=== PATIENT | female | born 1995 | race African-American/Black ===

== ENCOUNTER 2022-03-07 13:56 | Emergency (ER) | payer SELFPAY ==
--- NOTE | 2022-03-07 20:24 | ER ---
Nurse's Notes [facility] Name: Nga Patrick Age: 26 yrs Sex: Female : 1995 Arrival Date: 03/07/2022 Time: 14:26 Bed Waiting Private MD: Diagnosis: Presentation: 03/07 15:11 Chief complaint: Patient states: she has been having abdominal pain for approx 4 ap3 months, however it has gotten worse over the last few days, Patient reports being woken up in the early hours with abdominal pain, nausea and vomiting. Patient reports the vomit looked like it was mixed with blood. Coronavirus screen: At this time, the client does not indicate any symptoms associated with coronavirus-19. Ebola Screen: No symptoms or risks identified at this time. Initial Sepsis Screen: Does the patient meet any 2 criteria? No. Patient's initial sepsis screen is negative. Does the patient have a suspected source of infection? No. Patient's initial sepsis screen is negative. Risk Assessment: Do you want to hurt yourself or someone else? Patient reports no desire to harm self or others. Onset of symptoms was October 2021. 15:11 Method Of Arrival: EMS: [facility] ap3 15:11 Acuity: DEDRA 3 ap3 Triage Assessment: 15:17 General: Appears in no apparent distress. Behavior is calm, cooperative. Pain: ap3 Complains of pain in abdomen Pain began gradually, Also complains of nausea. Neuro: Level of Consciousness is awake, alert, obeys commands, Oriented to person, place, time, situation, Speech is normal. Cardiovascular: Patient's skin is warm and dry. Respiratory: Airway is patent Respiratory effort is even, unlabored. GI: Reports lower abdominal pain, upper abdominal pain, nausea, vomiting. 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 Flu vaccine is up to date. - Social history:: Smoking status: Patient denies any tobacco usage or history of. Screenin:17 Abuse screen: Denies threats or abuse. Nutritional screening: Has had N/V for 3 or more ap3 days. Tuberculosis screening: No symptoms or risk factors identified. Assessment: 15:18 GI: Abd is soft Abdomen is tender to palpation. ap3 Vital Signs: 15:11 BP 106 / 71; Pulse 88; Temp 97.7; Pulse Ox 100% ; Weight 68.04 kg; Height 5 ft. 3 in. ap3 (160.02 cm); 15:11 Body Mass Index 26.57 (68.04 kg, 160.02 cm) ap3 ED Course: 14:26 Patient arrived in ED. ds1 15:11 Marcial Pepper NP is PHCP. pm1 15:11 Delbert Newell MD is Attending Physician. pm1 15:14 Triage completed. ap3 15:17 Arm band placed on right wrist. ap3 20:23 Patient's name was called from ER lobby. No response. Unable to locate patient. Will bb disposition as left without being seen by a provider. Administered Medications: No medications were administered Outcome: 20:23 Patient left the ED. bb Signatures: Marjorie Ledesma ds1 Laurita Martins, RN RN bb Marcial Pepper NP [facility] [employer] pm1 Mary Mcguire RN RN ap3 Danie Garcia al4 Corrections: (The following items were deleted from the chart) 19:49 19:42 Danie Garcia is Primary Nurse. al4 al4
--- NOTE | 2022-03-07 20:24 | EDPHYS ---
Physician Documentation [facility] Name: Nga Patrick Age: 26 yrs Sex: Female : 1995 Arrival Date: 03/07/2022 Time: 14:26 Bed Waiting Private MD: ED Physician Delbert Newell HPI: 03/07 15:09 This 26 yrs old Black Female presents to ER via EMS with complaints of Abdominal Pain. pm1 15:09 The patient presents with abdominal pain that is diffuse. Onset: The symptoms/episode pm1 began/occurred Ongoing for multiple months, but worse past few days. The symptoms do not radiate. 15:09 Associated signs and symptoms: Pertinent positives: nausea and vomiting, Pertinent pm1 negatives: diarrhea, dysuria, fever. The symptoms are described as burning. Modifying factors: The symptoms are alleviated by nothing, the symptoms are aggravated by nothing. Severity of pain: in the emergency department the pain is actually worse. The patient has not experienced similar symptoms in the past. The patient has not recently seen a physician. 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 Flu vaccine is up to date. - Social history:: Smoking status: Patient denies any tobacco usage or history of. ROS: 15:09 Constitutional: Negative for fever, chills, and weight loss, Cardiovascular: Negative pm1 for chest pain, palpitations, and edema, Respiratory: Negative for shortness of breath, cough, wheezing, and pleuritic chest pain. 15:09 Back: Negative for injury and pain, MS/Extremity: Negative for injury and deformity, Skin: Negative for injury, rash, and discoloration, Neuro: Negative for headache, weakness, numbness, tingling, and seizure. 15:09 Abdomen/GI: Positive for abdominal pain, nausea and vomiting, Negative for diarrhea, constipation. 15:09 All other systems are negative. Exam: 15:09 Constitutional: This is a well developed, well nourished patient who is awake, alert, pm1 and in no acute distress. Head/Face: Normocephalic, atraumatic. 15:09 Back: No spinal tenderness. No costovertebral tenderness. Full range of motion. Skin: Warm, dry with normal turgor. Normal color with no rashes, no lesions, and no evidence of cellulitis. MS/ Extremity: Pulses equal, no cyanosis. Neurovascular intact. Full, normal range of motion. 15:09 Eyes: Exam is negative for acute changes. 15:09 ENT: Exam is negative for acute changes. 15:09 Cardiovascular: Rate: normal, Rhythm: regular, Pulses: no pulse deficits are appreciated. 15:09 Respiratory: Exam negative for acute changes, respiratory distress, shortness of breath, Breath sounds: are clear throughout. 15:09 Abdomen/GI: Inspection: obese Palpation: soft, in all quadrants, mild abdominal tenderness, in the epigastric area. 15:09 Neuro: Exam negative for acute changes, Orientation: is normal, Mentation: is normal, Motor: is normal, moves all fours. Vital Signs: 15:11 BP 106 / 71; Pulse 88; Temp 97.7; Pulse Ox 100% ; Weight 68.04 kg; Height 5 ft. 3 in. ap3 (160.02 cm); 15:11 Body Mass Index 26.57 (68.04 kg, 160.02 cm) ap3 MDM: 15:07 Patient medically screened. pm1 20:22 Data reviewed: vital signs. Data interpreted: Pulse oximetry: on room air is 100 %. pm1 Interpretation: normal. ED course: Patient left the ER. 04 15:06 Order name: IV Saline Lock pm1 03/07 15:06 Order name: Labs collected and sent pm1 03/07 15:06 Order name: Urine Dipstick-Ancillary (obtain specimen) pm1 03/07 15:06 Order name: Urine Test (obtain specimen) pm1 Administered Medications: No medications were administered Disposition Summary: 03/07/22 20:23 Eloped Disposition: after being seen by provider candace Reason: unknown bb Addendum: 03/09/2022 18:44 Co-signature as Attending Physician, Delbert Newell MD I agree with the assessment and c carrasco plan of care. Signatures: Dispatcher [employer] EDOR Delbert Newell MD MD cha Ballard, Brenda, RN RN Marcial Walsh NP [employer] pm1 Mary Mcguire RN RN ap3 Corrections: (The following items were deleted from the chart) 03/07 23:40 15:09 Onset: The symptoms/episode began/occurred Ongoing for multiple months, but worse pm1 today, pm1
[2022-03-08 03:17] VITALS: BP 106/71; TEMP 97.7; O2SAT 100
== END 2022-03-07 20:23 | disposition left against medical advice (07) ==
LOC: ER 13:56
DX: R10.9 Unspecified abdominal pain (principal); R11.2 Nausea with vomiting, unspecified; Z88.6 Allergy status to analgesic agent
CPT/HCPCS: 99282